=== PATIENT | female | born 1960 | race Caucasian/White ===

== ENCOUNTER 2023-02-05 08:34 | Day surgery (SDC) | payer OTHER, SELFPAY ==
--- NOTE | 2023-02-04 12:53 | P.CONAN_ITS ---
Documented by User: Paty Pritchard NP 02/04/23 12:54 HPI - Anesthesia Eval Consult details Narrative: 62yo F for Upper Endoscopy [facility] Active Problems Active Problems: All Active Problems (Updated 10/17/22 @ 19:26 by Jenny Paez RN) Dysphagia (Acute) History of colonoscopy (Acute) Past Medical History Medical History (Updated 10/17/22 @ 19:26 by Jenny Paez RN) Anxiety Family History Family History Father Cancer CHF (congestive heart failure) PVD (peripheral vascular disease) Mother Breast CA Surgical History Surgical History (Updated 10/17/22 @ 19:26 by Jenny Paez RN) H/O basal cell carcinoma excision H/O laparoscopy Hx of section Hx of hysterectomy Social History Social History (Updated 02/11/22 @ 11:06 by Mell Lee PA-C) Household Members: Family Alcohol intake: current Alcohol intake frequency: holidays/special occasions only Alcohol type: wine Patient Tobacco Use Status: Former Tobacco user Tobacco use type: Cigarette Current occupation: [employer] Meds Allergies Allergy/AdvReac Type Severity Reaction Status Date / Time No Known Allergies Allergy Verified 02/11/22 10:38 Home Medications Medication Instructions Recorded Confirmed Last Taken Type escitalopram oxalate 10 mg tablet 10 mg PO DAILY 02/11/22 02/05/23 Unknown History lorazepam 0.5 mg tablet 0.25 mg PO BEDTIME 02/11/22 02/05/23 Unknown History omeprazole 20 mg capsule,delayed 20 mg PO DAILY 02/11/22 02/05/23 02/05/23 History release Exam Exam Date and Time: February 04, 2023 1253 Assessment and Plan Assessment Anesthesia Assessment: Chart Reviewed Documented by User: Deonte Grey MD 02/05/23 16:49 PMFSH Past Medical History Medical History (Updated 10/17/22 @ 19:26 by Jenny Paez RN) Anxiety Functional capacity: independent ambulation Family History Family History Father Cancer CHF (congestive heart failure) PVD (peripheral vascular disease) Mother Breast CA Family history of problems with anesthesia: No Surgical History Surgical History (Updated 10/17/22 @ 19:26 by Jenny Paez RN) H/O basal cell carcinoma excision H/O laparoscopy Hx of section Hx of hysterectomy History of Problems with Anesthesia: No Social History Social History (Updated 02/11/22 @ 11:06 by Mell Lee PA-C) Household Members: Family Alcohol intake: current Alcohol intake frequency: holidays/special occasions only Alcohol type: wine Patient Tobacco Use Status: Former Tobacco user Tobacco use type: Cigarette Current occupation: [employer] Meds Allergies Allergy/AdvReac Type Severity Reaction Status Date / Time No Known Allergies Allergy Verified 02/11/22 10:38 Home Medications Medication Instructions Recorded Confirmed Last Taken Type escitalopram oxalate 10 mg tablet 10 mg PO DAILY 02/11/22 02/05/23 Unknown History lorazepam 0.5 mg tablet 0.25 mg PO BEDTIME 02/11/22 02/05/23 Unknown History omeprazole 20 mg capsule,delayed 20 mg PO DAILY 02/11/22 02/05/23 02/05/23 History release Exam Airway Mallampati Class: IV Neck ROM: Full Loose/Missing/Broken Teeth: Yes (fiilings ) Assessment and Plan Assessment Anesthesia Assessment: Anesthesia Plan Discussed Final Anesthetic Review Family History of Problems with Anesthesia: No History of Problems with Anesthesia: No NPO: Yes ASA Class: II Final Preanesthetic Review: Meds/Allgs Chart Reviewed, Consent Obtained/Reviewed and Anes Risks/Benef Reviewed Patient Risk: Intermediate Procedure Risk: Intermediate Anesthetic Plan Anesthetic Plan: MAC: Disposition: Standard PACU
--- NOTE | 2023-02-05 08:46 | MHC.SHP ---
Pre-Procedural Eval Section A Date of Service: 02/05/23 Section B Chief Complaint: Dysphagia, unspecified Relevant Family History (Specify if Yes): No Relevant Social History: None Present Medications: see Short Stay Collaborative assessment Medical History: Significant History (anxiety) History of Previous Operations: Relevant previous surgery/procedure and date(s) (H/O basal cell carcinoma excision H/O laparoscopy Hx of section Hx of hysterectomy) Allergies: Allergies Allergy/AdvReac Type Severity Reaction Status Date / Time No Known Allergies Allergy Verified 02/11/22 10:38 Review of Systems Sugical H&P ROS: Negative: Constitution, Cardiovascular, Respiratory, Neurological, Psychiatric, Hem-Onc, Allergic/Immunologic, Gastrointestinal, Genitourinary, Musculoskeletal, Integumentary, Endocrine and Eyes/Ears/Nose/Throat Exam Surgical H&P Exam: Normal: HEENT, Normal: Heart, Normal: Lungs, Normal: Extremities, Normal: Abdomen, Normal: Skin and Normal: Neurological Plan Diagnosis/Plan: Unchanged I have reviewed the history and physical and performed a pertinent physical examination on my patient. No changes have occurred unless specified. Time Spent With Patient Time: Total time managing care of this patient today ____ minutes.
[2023-02-05 08:52] VITALS: BMI 23.9
[2023-02-05 08:58] VITALS: BP 123/79; PULSE 67; RESP 18; TEMP 36.8; O2SAT 99
[2023-02-05] MEDS: Lactated Ringers 1,000 ML 100 ML IVCONT (09:14)
--- NOTE | 2023-02-05 09:27 | W.PM.OPN ---
Operative Note Operative Note Date of Service: 02/05/23 Narrative: Procedure Description: EGD Indication: dysphagia Anesthesia: MAC FLEXIBLE TRANSORAL UPPER GASTROINTESTINAL ENDOSCOPY UPPER ENDOSCOPY Consent: Indications for the procedure and potential complications of bleeding, perforation, reaction to medications and missed diagnosis were discussed with the patient and informed consent was obtained. Instrument: Olympus GIF H 190 J mid size upper endoscope Monitoring: Vital signs and clinical assessment, continuous EKG monitoring, Pulse oximetry, Carbon Dioxide monitoring and blood pressure monitoring were done throughout the procedure. Procedure: The patient was placed in the left lateral decubitis position and pre-procedure medications were administered and a bite block was placed. The endoscope was inserted into the mouth and advanced under direct vision to the third part of duodenum. A careful inspection was made as the upper endoscope was withdrawn including a retroflexed examination of the proximal stomach; Findings and interventions are described below. Findings: Larynx:normal Esophagus: GE junction at 42 cm, diaphragm hiatus at 42 cm, bx taken from GEJ/distal and proximal esophagus. Balloon dilation to 20 mm at LES and UES, no tears seen. Tertiary contractions noted. Stomach: Mild patchy gastric erythema. Biopsies were obtained. Grade 2 flap valve on retroflexed examination of the cardia. The pyloric outlet seemed tight, balloon dilation done to 20 mm, no tears seen. There was also no gastric movement noted. Duodenum: Normal bulb and descending duodenum, bx taken Intervention: Biopsies as noted above, balloon dilation Impression/Findings: tertiary contractions suggestive of esophageal dysmotility possible gastroparesis PLAN: Patient just started taking PPI regularly one month ago and feels it helped her sx, can consider increasing dose if sx of gastroparesis then GES, maybe esophgeal motility study or YEE as well
[2023-02-05 10:22] VITALS: BP 92/53; PULSE 66; RESP 16; TEMP 36.2; O2SAT 97
[2023-02-05 10:42] VITALS: BP 121/82; PULSE 65; RESP 17; TEMP 36.1; O2SAT 98
== END 2023-02-05 11:31 | disposition home or self-care (01) ==
PROVIDERS: PCP Internal Medicine; Visit Provider Internal Medicine Gastroenterology
PROC: 0DJ08ZZ Inspection of Upper Intestinal Tract, Via Natural or Artificial Opening Endoscopic (ICD-10-PCS; CPT 43235; principal; 2023-02-05 10:00)
DX: R13.10 Dysphagia, unspecified (principal); K22.4 Dyskinesia of esophagus; K44.9 Diaphragmatic hernia without obstruction or gangrene; Z79.899 Other long term (current) drug therapy; Z87.891 Personal history of nicotine dependence; Z98.890 Other specified postprocedural states
CPT/HCPCS: 43249; 43245; 43239; 88305; 88342; C1726; J2250

== ENCOUNTER → 2023-02-05 08:34 | Outpatient (BNV) | payer OTHER, SELFPAY | PROVIDERS: PCP Internal Medicine; Visit Provider Internal Medicine Gastroenterology | DX: R13.10 Dysphagia, unspecified (principal) | CPT/HCPCS: 43249 ==

== ENCOUNTER 2023-02-17 08:05 | Outpatient (AMB) | payer OTHER, SELFPAY ==
--- NOTE | 2023-02-17 08:02 | A.OFFVIS_ITS ---
Intake Vital Signs 02/17/23 08:10 Height 5 ft 3 in Weight 131 lb BMI 23.2 BP 119/60 Blood Pressure Location Lt brachial Position Sitting Respiration 14 Pulse 68 Intake Visit Reasons: S/p egd- Pedraza Intake Note: Patient follow up for EGD results. Patient denies any GI issues. 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 Accompanied by: Self / Same As Patient Allergies No Known Allergies Allergy (Verified 02/17/23 08:12) Medication List - Last Reconciled 02/17/23 by Mell Lee PA-C escitalopram oxalate 10 mg PO DAILY lorazepam 0.25 mg PO BEDTIME omeprazole 40 mg PO DAILY HPI HPI Comments History of Present Illness Details A 62 y/o female f/u after EGD for dysphagia-she is now taking omeprazole 40 mg - fairly good coverage Taking ppi with good coverage- Appetite is good- Bowels ok- No n/v/d- abdominal pain- PFSH Medical History (Updated 02/17/23 @ 08:19 by Mell Lee PA-C) Anxiety Surgical History (Updated 02/10/23 @ 08:46 by Emelina Garza) H/O basal cell carcinoma excision H/O laparoscopy History of esophagogastroduodenoscopy (EGD) Hx of section Hx of hysterectomy Family History Father Cancer CHF (congestive heart failure) PVD (peripheral vascular disease) Mother Breast CA Social History Household Members: Family Alcohol intake: current Alcohol intake frequency: holidays/special occasions only Alcohol type: wine Patient Tobacco Use Status: Former Tobacco user Tobacco use type: Cigarette Current occupation: [employer] Review of Systems Const All systems reviewed & are unremarkable except as noted in HPI and below Card Denies chest pain and Denies dyspnea Resp Denies dyspnea GI Denies abdominal pain and Denies change in bowel habits Physical Exam Const General: cooperative and comfortable Orientation/consciousness: patient oriented x3 Limitations: no limitations Resp Effort & Inspection: normal respiratory effort and able to speak in complete sentences Skin General skin exam: no rashes or lesions noted Neuro General: patient oriented x3 Extrem General: Yes full ROM Psych Appearance: grossly normal and well kempt Mental Status: mental status grossly normal Speech and movement: Normal speech and movement present and Clear speech present Affect: normal affect Attitude: cooperative Thought process: Normal thought process present Thought content: Normal thought content present Insight: Good insight present (Psych) Judgement: Good judgement present (Psych) Results Reviewed Results Reviewed: Impression/Findings: tertiary contractions suggestive of esophageal dysmotility possible gastroparesis PLAN: Patient just started taking PPI regularly one month ago and feels it helped her sx, can consider increasing dose if sx of gastroparesis then GES, maybe esophgeal motility study or YEE as well Name:?Anel Patricia Age/Sex: 62/F Attending: Juana Pedraza MD : 1960 Submitted by: Juana Pedraza MD Copies to: Jayla Garza MD MR #: [id number] ? Status: [facility] Collected: 02/05/23 Location: [facility] Received: 02/05/23 Diagnosis A.? Duodenum, biopsy:? Duodenal mucosa within normal limits; preserved villous architecture and no increased intraepithelial lymphocytes.? B.? Stomach, biopsy:? Gastric body mucosa within normal limits; negative for Helicobacter pylori, intestinal metaplasia and dysplasia.? C.? Gastroesophageal junction and distal esophagus, biopsy:? Squamous and columnar junctional mucosa with mild chronic inflammation; negative for intestinal metaplasia and dysplasia. D.? Esophagus, proximal, biopsy:? Squamous mucosa within normal limits; negative for inflammation (including intraepithelial eosinophils), fungal organisms, intestinal metaplasia and dysplasia. Assessment & Plan Assessment & Plan (1) Dysphagia: Comment: Balloon dilation to 20 mm at LES and UES Code(s): R13.10 - Dysphagia, unspecified Plan: Reviewed Rec- just started taking PPI regularly one month ago and feels it helped her sx, can consider increasing dose if sx of gastroparesis then GES, maybe esophgeal motility study or YEE as well Patient Instructions: A very pleasant 62 y/o F Continue omeprazole 40 mg QD- reassess in 3 months Eat slowly- chew well Call with concerns Coding Level of Care Code Est Pt Level 3 (04197) Diagnoses Dysphagia R13.10 Time Spent (min) 30
[2023-02-17 08:10] VITALS: BP 119/60; PULSE 68; RESP 14; BMI 23.2
== END 2023-02-17 10:46 | disposition home or self-care (01) ==
LOC: HO.HGIW 08:06
PROVIDERS: PCP Internal Medicine; Visit Provider Physician Assistant
DX: R13.10 Dysphagia, unspecified (principal)
CPT/HCPCS: 99213

== ENCOUNTER → 2023-02-17 08:05 | Outpatient (BNVA) | payer OTHER, SELFPAY | PROVIDERS: PCP Internal Medicine; Visit Provider Physician Assistant ==